=== PATIENT | female | born 1960 | race Caucasian/White ===

== ENCOUNTER 2024-06-18 17:44 | Inpatient (IN) | payer MEDICARE ==
[~2024-06-18] VITALS: Ht 154.9 cm; Wt 68.0 kg
[2024-06-18] MEDS: ACETAMINOPHEN 325 MG TAB PO ONE (19:49)
[2024-06-18 19:52] LABS: BASOPHILS % 0.4 % (0.0-1.0); EOSINOPHILS % 0.6 % (0.0-6.0); HEMATOCRIT 30.3 % (34.2-44.1); HEMOGLOBIN 9.8 g/dL (12.0-16.0); LYMPHOCYTES # (AUTO) 0.7 (1.0-3.2); LYMPHOCYTES % 10.1 % (18.0-39.1); MEAN CORPUSCULAR HEMOGLOBIN 31.8 pg (28-32); MEAN CORPUSCULAR HGB CONC 32.3 g/dL (31-35); MEAN CORPUSCULAR VOLUME 98.4 fL (81-99); MONOCYTES # (AUTO) 0.4 (0.2-0.8); MONOCYTES % 5.3 % (4.4-11.3); NEUTROPHILS % 82.8 % (38.7-80.0); PLATELET COUNT 165 x10e3/uL (140-360); RED BLOOD COUNT 3.08 x10e6/uL (3.6-5.1); RED CELL DISTRIBUTION WIDTH 14.7 % (11.7-14.4); WHITE BLOOD COUNT 7.21 x10e3/uL (4.8-10.8)
[2024-06-18 20:02] LABS: COVID 19 ANTIGEN NOT DETECTED (NEGATIVE)
[2024-06-18 20:03] LABS: INFLUENZAE A&B ANTIGEN (RAPID) NEGATIVE (NEGATIVE)
[2024-06-18 20:04] LABS: ALANINE AMINOTRANSFERASE 20 IU/L (0-55); ALBUMIN 3.1 g/dL (3.5-5.0); ALBUMIN/GLOBULIN RATIO 0.7 (0.8-2.0); ALKALINE PHOSPHATASE 167 IU/L (40-150); BILIRUBIN,TOTAL 0.3 mg/dL (0.2-1.2); BLOOD UREA NITROGEN 30 mg/dL (7-26); BUN/CREATININE RATIO 9 (6-25); CALCIUM 8.8 mg/dL (8.4-10.2); CARBON DIOXIDE 27 mmol/L (22-29); CHLORIDE 96 mmol/L (98-107); CREATININE, SERUM 3.49 mg/dL (0.57-1.11); EST GLOMERULAR FILTRATION RATE 14 ML/MIN (>=60); GLUCOSE 158 mg/dL (74-118); SODIUM 138 mmol/L (136-145); TOTAL PROTEIN 7.5 g/dL (6.5-8.1)
[2024-06-18 20:07] LABS: RESPIRATORY SYNC. VIRUS NEGATIVE (NEGATIVE)
[2024-06-18 20:17] LABS: TROPONIN I 0.152 ng/mL (0-0.300)
[2024-06-18 20:42] VITALS: PULSE 102; RESP 16; TEMP 99.8
[2024-06-18] MEDS ORDERED: SODIUM CHLORIDE FLUSH 10 ML SYR INJ PRN (21:00)
[2024-06-18] MEDS ORDERED: ACETAMINOPHEN 325 MG TAB PO PRN (21:00)
[2024-06-18] MEDS: INSULIN REGULAR, HUMAN 100 UNIT/1 ML SQ SCH (21:00)
[2024-06-18] MEDS ORDERED: DEXTROSE 50% SYRINGE 50 ML IV PRN (21:00)
[2024-06-18] MEDS: ONDANSETRON HCL INJ 2MG/ML 2ML 2 MG/ML VIAL IV PRN (21:22)
[2024-06-18 21:55] VITALS: PULSE 97; RESP 18; O2SAT 96
[2024-06-19] VITALS (11 sets, daily range): BP systolic 145–168; BP diastolic 54–69; PULSE 86–90; RESP 16–19; TEMP 97.7–98.7; O2SAT 94–100
[2024-06-19] MEDS ORDERED: HYDRALAZINE HCL 20 MG/ML VIAL IV PRN (02:45)
[2024-06-19] MEDS ORDERED: SIMETHICONE 80 MG CHEW PO PRN (02:45)
[2024-06-19] MEDS ORDERED: ALBUTEROL/IPRATROPIUM 3 ML NEB NEB PRN (02:45)
[2024-06-19] MEDS ORDERED: DIPHENHYDRAMINE HCL 25 MG CAP PO PRN (02:45)
[2024-06-19] MEDS ORDERED: LIDOCAINE 4% PATCH TP PRN (02:45)
[2024-06-19] MEDS ORDERED: DEXTROSE 50% SYRINGE 50 ML IV PRN (02:45)
[2024-06-19] MEDS ORDERED: ACETAMINOPHEN 325 MG TAB PO PRN (02:45)
[2024-06-19] MEDS ORDERED: BENZONATATE 100 MG CAP PO PRN (02:45)
[2024-06-19 06:49] LABS: BASOPHILS % 0.2 % (0.0-1.0); EOSINOPHILS # (AUTO) 0.1 (0.0-0.4); EOSINOPHILS % 1.5 % (0.0-6.0); HEMOGLOBIN 10.1 g/dL (12.0-16.0); LYMPHOCYTES # (AUTO) 0.9 (1.0-3.2); MEAN CORPUSCULAR HEMOGLOBIN 31.5 pg (28-32); MEAN CORPUSCULAR HGB CONC 29.7 g/dL (31-35); MEAN CORPUSCULAR VOLUME 105.9 fL (81-99); MONOCYTES # (AUTO) 0.4 (0.2-0.8); MONOCYTES % 8.5 % (4.4-11.3); NEUTROPHILS # (AUTO) 3.2 (2.1-6.9); NEUTROPHILS % 69.4 % (38.7-80.0); PLATELET COUNT 129 x10e3/uL (140-360); RED BLOOD COUNT 3.21 x10e6/uL (3.6-5.1); RED CELL DISTRIBUTION WIDTH 14.9 % (11.7-14.4); WHITE BLOOD COUNT 4.59 x10e3/uL (4.8-10.8)
[2024-06-19 07:15] LABS: ANION GAP 20.8 mmol/L (8-16); CALCIUM 8.3 mg/dL (8.4-10.2); CREATININE, SERUM 4.18 mg/dL (0.57-1.11); POTASSIUM 4.8 mmol/L (3.5-5.1)
[2024-06-19 07:29] LABS: TROPONIN I 0.068 ng/mL (0-0.300)
[2024-06-19] MEDS: PANTOPRAZOLE SOD 40 MG TABEC PO SCH (09:14)
[2024-06-19 13:32] LABS: TROPONIN I 0.088 ng/mL (0-0.300)
[2024-06-19] MEDS ORDERED: IOPAMIDOL 370 MG/ML 100 ML INFUS..BTL INJ ONE (16:17)
[2024-06-19] MEDS: MELATONIN 5 MG TABLET PO PRN (21:30)
[2024-06-19] MEDS: ONDANSETRON HCL INJ 2MG/ML 2ML 2 MG/ML VIAL IV PRN (23:02)
[2024-06-20] VITALS (8 sets, daily range): BP systolic 149–178; BP diastolic 69–77; PULSE 78–90; RESP 17–18; TEMP 97.4–98.3; O2SAT 97–100
[2024-06-20 07:17] LABS: ALBUMIN 2.7 g/dL (3.5-5.0); ALBUMIN/GLOBULIN RATIO 0.7 (0.8-2.0); ANION GAP 19.2 mmol/L (8-16); BILIRUBIN,TOTAL 0.4 mg/dL (0.2-1.2); CALCIUM 7.8 mg/dL (8.4-10.2); CREATININE, SERUM 5.67 mg/dL (0.57-1.11); TOTAL PROTEIN 6.8 g/dL (6.5-8.1)
[2024-06-20 07:30] LABS: HEPATITIS B SURFACE AG (P) Negative
[2024-06-20 07:31] LABS: HEPATITIS B CORE AB TOTAL Negative; HEPATITIS B SURFACE AB QUANT 30.2
[2024-06-20 07:38] LABS: POTASSIUM 5.2 mmol/L (3.5-5.1)
[2024-06-20] MEDS: DOCUSATE SODIUM 100 MG CAP PO PRN (08:58)
[2024-06-20 14:30] LABS: INR 1.07; PROTHROMBIN TIME 14.6 seconds (11.9-14.5)
[2024-06-20] MEDS ORDERED: LIDOCAINE HCL 1% LOCAL INJ 20 ML VIAL ONE (14:35)
[2024-06-20] MEDS ORDERED: IOPAMIDOL 370 MG/ML 100 ML INFUS..BTL INJ ONE (14:35)
[2024-06-20] MEDS ORDERED: SODIUM CHLORIDE 0.9% 500ML 500 ML ONE (14:35)
[2024-06-20] MEDS ORDERED: HEPARIN SOD (PORCINE) 1000 UNIT/ML SDV ONE (15:11)
[2024-06-20] MEDS ORDERED: SODIUM CHLORIDE 0.9% 250ML 250 ML ONE (15:12)
[2024-06-20] MEDS ORDERED: FENTANYL CITRATE/PF 100MCG/2 ML INJ ONE (15:12)
[2024-06-20] MEDS ORDERED: SODIUM CHLORIDE 0.9% 1000ML 2,000 ML IV PRN (18:30)
[2024-06-20] MEDS ORDERED: SODIUM CHLORIDE 0.9% 250ML 500 ML IV PRN (18:30)
[2024-06-20] MEDS ORDERED: ALBUMIN 25% 12.5GM 0.25 GM/ML BTL IV PRN (18:30)
[2024-06-20] MEDS: SODIUM CHLORIDE 0.9% 1000ML 1,000 ML ONE (19:34)
[2024-06-20] MEDS: ALBUMIN 25% 12.5GM 50ML 50 ML IV ONE (21:52)
[2024-06-21 04:04] VITALS: BP 170/73; PULSE 84; RESP 18; TEMP 98.2; O2SAT 100
[2024-06-21 06:20] LABS: HEMATOCRIT 29.1 % (34.2-44.1); HEMOGLOBIN 8.9 g/dL (12.0-16.0)
[2024-06-21 07:07] LABS: ANION GAP 16.6 mmol/L (8-16); CALCIUM 7.9 mg/dL (8.4-10.2); CREATININE, SERUM 3.5 mg/dL (0.57-1.11); POTASSIUM 4.6 mmol/L (3.5-5.1)
[2024-06-21] MEDS: SEVELAMER CARBONATE 800 MG TAB PO SCH (08:14)
[2024-06-21] MEDS: LOSARTAN POTASSIUM 25 MG TAB PO SCH (08:15)
[2024-06-21] MEDS ORDERED: ONDANSETRON HCL 4 MG ORAL DISINTEGRATING TAB PO PRN (08:45)
[2024-06-21 09:13] VITALS: BP 159/57; PULSE 87; RESP 18; TEMP 97.8; O2SAT 99
[2024-06-21 11:46] VITALS: BP 159/57; PULSE 87; RESP 18; TEMP 97.8; O2SAT 99
[2024-06-21 11:56] VITALS: BP 172/66; PULSE 87; RESP 18; TEMP 98.2; O2SAT 99
[2024-06-21 16:29] VITALS: BP 183/67; PULSE 88; RESP 18; TEMP 98.5; O2SAT 100
[2024-06-21 17:05] VITALS: BP 183/67; PULSE 88
[2024-06-21] MEDS: NIFEDIPINE CR 30 MG TAB PO SCH (17:05)
[2024-06-21] MEDS: METOPROLOL TARTRATE 50 MG TAB PO SCH (17:05)
[2024-06-21] MEDS ORDERED: AZITHROMYCIN 250 MG TAB PO SCH (21:00)
== END 2024-06-21 19:15 | disposition home or self-care (01) | DRG 981 ==
LOC: ER 17:58 → ERHOLD 20:51 → MED/SURG3 21:42
PROVIDERS: ADMIT Internal Medicine; ATTEND Internal Medicine
PROC: 05753ZZ Dilation of Right Subclavian Vein, Percutaneous Approach (ICD-10-PCS; principal; 2024-06-20)
PROC: B51W1ZZ Fluoroscopy of Dialysis Shunt/Fistula using Low Osmolar Contrast (ICD-10-PCS; 2024-06-20)
PROC: 5A1D70Z Performance of Urinary Filtration, Intermittent, Less than 6 Hours Per Day (ICD-10-PCS; 2024-06-20)
DX: J18.9 Pneumonia, unspecified organism (principal); N18.6 End stage renal disease; T82.856A Stenosis of peripheral vascular stent, initial encounter; I82.B11 Acute embolism and thrombosis of right subclavian vein; I12.0 Hypertensive chronic kidney disease with stage 5 chronic kidney disease or end stage renal disease; N25.81 Secondary hyperparathyroidism of renal origin; E11.22 Type 2 diabetes mellitus with diabetic chronic kidney disease; Z99.2 Dependence on renal dialysis; D63.1 Anemia in chronic kidney disease; I45.10 Unspecified right bundle-branch block; R00.0 Tachycardia, unspecified; E11.51 Type 2 diabetes mellitus with diabetic peripheral angiopathy without gangrene; E11.319 Type 2 diabetes mellitus with unspecified diabetic retinopathy without macular edema; H54.7 Unspecified visual loss; R59.0 Localized enlarged lymph nodes; D17.71 Benign lipomatous neoplasm of kidney; Z11.52 Encounter for screening for COVID-19; Y83.8 Other surgical procedures as the cause of abnormal reaction of the patient, or of later complication, without mention of misadventure at the time of the procedure; Z89.512 Acquired absence of left leg below knee; Z79.4 Long term (current) use of insulin; Z79.899 Other long term (current) drug therapy
CPT/HCPCS: 0223U; 36415; 36901; 36902; 71045; 71260; 74470; 80048; 80053; 82550; 82948; 83605; 84484; 85014; 85018; 85025; 85610; 86704; 86706; 87040; 87340; 87400; 87420; 93005; 94799; 99284; J0696; J1644; J2003; J2405; J7030; J7040; J7050; Q9967